=== PATIENT | male | born 1960 | race African-American/Black ===

== ENCOUNTER 2017-03-30 01:05 | Inpatient (IN) | payer OTHER ==
[~2017-03-30] VITALS: Ht 182.9 cm; Wt 73.0 kg
[2017-03-30] MEDS ORDERED: HALOPERIDOL 5 MG TABLET PO PRN (02:15)
[2017-03-30] MEDS ORDERED: ZOLPIDEM TARTRATE 10 MG TABLET PO PRN (02:15)
[2017-03-30] MEDS ORDERED: LORazepam 2 MG TABLET PO PRN (02:15)
[2017-03-30 03:42] VITALS: BP 132/82
[2017-03-30 08:49] VITALS: BP 121/58
[2017-03-30 16:35] VITALS: BP 131/80
[2017-03-30] MEDS: QUEtiapine FUMARATE 50 MG ER TABLET PO SCH (21:13)
[2017-03-31 07:37] LABS: ALANINE AMINOTRANSFERASE 40 U/L (12-78); ALBUMIN 3.7 g/dL (3.4-5.0); ANION GAP 9 mmol/L (8-16); ASPARTATE AMINOTRANSFERASE 23 U/L (15-37); BILIRUBIN,TOTAL 0.2 mg/dL (0.1-1.0); CALCIUM, TOTAL 8.6 mg/dL (8.8-10.5); CARBON DIOXIDE 27 mmol/L (22-29); CHLORIDE 100 mmol/L (98-107); CHOL/HDL RATIO 5.5 (4.2-7.3); CREATININE 0.74 mg/dL (0.60-1.30); GLOMERULAR FILTR. RATE CALC > 60 mL/min (>60); POTASSIUM 3.8 mmol/L (3.5-5.1); SODIUM SERUM 136 mmol/L (136-145); THYROID STIMULATING HORMONE 2.84 uIU/mL (0.36-3.74); TOTAL PROTEIN, SERUM 6.4 g/dL (6.4-8.2); UREA NITROGEN, BLOOD 17 mg/dL (7-18)
[2017-03-31] MEDS: FLUoxetine HCL 20 MG CAPSULE PO SCH (08:07)
[2017-03-31 08:15] VITALS: BP 120/69
[2017-03-31 17:00] VITALS: BP 111/66
[2017-03-31 17:11] LABS: APPEARANCE,URINE CLEAR (CLEAR); GLUCOSE, URINE (UA) NEGATIVE (NEGATIVE); KETONES,URINE NEGATIVE (NEGATIVE); LEUKOCYTE ESTERASE ,URINE NEGATIVE (NEGATIVE); OCCULT BLOOD,URINE SMALL (NEGATIVE); PROTEIN,URINE NEGATIVE (NEGATIVE)
[2017-03-31 17:23] LABS: ADD UA MICROSCOPIC YES
[2017-03-31 17:29] LABS: RBC,URINE 0-2 /HPF (0-2); WBC,URINE 0-2 /HPF (0-5)
[2017-03-31] MEDS: QUEtiapine FUMARATE 50 MG ER TABLET PO SCH (20:31)
[2017-03-31] MEDS ORDERED: FLUO-191 PO (21:02)
[2017-03-31] MEDS ORDERED: QUET50XR PO (21:03)
[2017-04-01 08:15] VITALS: BP 132/68
[2017-04-01] MEDS: FLUoxetine HCL 20 MG CAPSULE PO SCH (08:34)
== END 2017-04-01 10:37 | disposition home or self-care (01) | DRG 885 ==
LOC: 3EX 01:43
PROVIDERS: ADMIT Psychiatry & Neurology Psychiatry; ATTEND Psychiatry & Neurology Psychiatry
DX: F25.0 Schizoaffective disorder, bipolar type (principal); E78.00 Pure hypercholesterolemia, unspecified; E78.5 Hyperlipidemia, unspecified
CPT/HCPCS: 84443